=== PATIENT | male | born 1970 | race Caucasian/White ===

== ENCOUNTER → 2021-09-28 | Day surgery (SDC) | payer OTHER ==
[~2021-09-28] VITALS: Ht 180.3 cm; Wt 104.3 kg
[~2021-09-28] MED LIST: ATARAX25 MG PO; DICLOFENAC SODI75 MG PO; FARXIGA10 MG PO; GABAPENTIN600 MG PO; GLYBURIDE5 MG PO; LISINOPRIL40 MG PO; METFORMIN HCL500 MG PO; NEXIUM40 MG PO; PRAVASTATIN SOD80 MG PO; TIZANIDINE HCL4 M1 PO; TOPROL XL100 MG PO; VICODIN 10/3251 EACH PO; ZYRTEC10 M3 PO
[2021-09-28 07:31] LABS: BASOPHIL 0.7 % (0-2); EOSINOPHIL 1.1 % (0-5); HCT 47.9 % (42.0-52.0); HGB 15.5 g/dl (13.2-18.0); LYMPHOCYTE 30.6 % (15-48); MCH 28.4 pg (25.0-31.0); MCHC 32.4 g/dL (32.0-36.0); MCV 87.9 fL (78.0-100.0); MONOCYTE 9.1 % (0-12); MPV 9.7 fL (6.0-9.5); NEUTROPHIL 58.2 % (41-80); NRBC 0; PLT 192 K/uL (150-400); RBC 5.45 M/uL (4.70-6.00); RDW 14.2 % (11.5-14.0); WBC 9.4 K/uL (4.0-10.5)
[2021-09-28 08:02] LABS: BUN/CREAT RATIO (CALC) 22.5 RATIO; CREATININE 1.02 mg/dL (0.67-1.17); POTASSIUM 4.8 mmol/L (3.5-5.1)
== END | disposition home or self-care (01) ==
LOC: FAS 06:43
PROVIDERS: Anesthesiology; Oral & Maxillofacial Surgery
DX: K02.9 Dental caries, unspecified (principal); K04.7 Periapical abscess without sinus; E11.9 Type 2 diabetes mellitus without complications; I10 Essential (primary) hypertension
CPT/HCPCS: D7140; D7210; D7310; 36415; 71045; 80048; 85025; 93005; J1100; J1170; J2250; J2405; J2704; J3010; J7120